=== PATIENT | female | born 1960 | race American Indian/Alaskan Native ===

== ENCOUNTER 2022-06-08 13:10 | Emergency (ER) | payer MEDICARE ==
--- NOTE | 2022-06-09 00:08 | Emergency Department Report ---
- General Chief Complaint: Upper Respiratory Infection Stated Complaint: COUGH/CONGESTION/SORE THROAT Time Seen by Provider: 06/08/22 23:46 Source: patient Mode of arrival: Ambulatory Limitations: No Limitations - History of Present Illness Initial Comments: 62-year-old female presenting with sore throat, cough and congestion that has been going on for about 7 days ago. No fever but chills reported. Pt daughter have had same symptoms as well. She says she tried OTC tamiflu with some improvement yesterday. Pt denies any other modifying or associated factors. MD Complaint: cough, sore throat, nasal congestion - Related Data Home Medications Medication Instructions Recorded Confirmed Last Taken Aspirin [Aspirin BABY CHEW TAB] 81 mg PO QDAY 04/14/16 04/14/16 Unknown Citalopram [celeXA] 10 mg PO QDAY 04/14/16 04/14/16 Unknown Lisinopril/Hydrochlorothiazide 1 tab PO QDAY 04/14/16 04/14/16 Unknown [Zestoretic 20-25 mg] Metoprolol Tartrate [Lopressor] 100 mg PO DAILY 04/14/16 04/14/16 Unknown Phentermine HCl 37.5 mg PO QAM 04/14/16 04/14/16 Unknown Simvastatin (NF) [Zocor TAB] 40 mg PO QHS 04/14/16 04/14/16 Unknown glyBURIDE [Diabeta] 2.5 mg PO DAILY 04/14/16 04/14/16 Unknown Allergies Allergy/AdvReac Type Severity Reaction Status Date / Time No Known Allergies Allergy Verified 06/08/22 13:37 ED Review of Systems ROS: Stated complaint: COUGH/CONGESTION/SORE THROAT Other details as noted in HPI Comment: All other systems reviewed and negative ENT: throat pain Respiratory: cough ED Past Medical Hx - Past Medical History Hx Hypertension: Yes Hx Diabetes: Yes Additional medical history: heart murmur - Surgical History Additional Surgical History: CARDIAC CATH (when she was 18 yrs old) - Social History Smoking Status: Never Smoker Substance Use Type: None - Medications Home Medications: Home Medications Medication Instructions Recorded Confirmed Last Taken Type Aspirin [Aspirin BABY CHEW TAB] 81 mg PO QDAY 04/14/16 04/14/16 Unknown History Citalopram [celeXA] 10 mg PO QDAY 04/14/16 04/14/16 Unknown History Lisinopril/Hydrochlorothiazide 1 tab PO QDAY 04/14/16 04/14/16 Unknown History [Zestoretic 20-25 mg] Metoprolol Tartrate [Lopressor] 100 mg PO DAILY 04/14/16 04/14/16 Unknown History Phentermine HCl 37.5 mg PO QAM 04/14/16 04/14/16 Unknown History Simvastatin (NF) [Zocor TAB] 40 mg PO QHS 04/14/16 04/14/16 Unknown History glyBURIDE [Diabeta] 2.5 mg PO DAILY 04/14/16 04/14/16 Unknown History ED Physical Exam - General Limitations: No Limitations General appearance: alert, in no apparent distress - Head Head exam: Present: normal inspection - Eye Eye exam: Present: normal appearance Pupils: Present: normal accommodation - ENT ENT exam: Present: normal exam, normal orophraynx, mucous membranes moist - Neck Neck exam: Present: normal inspection, full ROM. Absent: tenderness, lymphadenopathy - Respiratory Respiratory exam: Present: normal lung sounds bilaterally. Absent: respiratory distress, chest wall tenderness, accessory muscle use - Cardiovascular Cardiovascular Exam: Present: regular rate, normal rhythm, normal heart sounds - GI/Abdominal GI/Abdominal exam: Present: soft, normal bowel sounds. Absent: distended, tenderness - Extremities Exam Extremities exam: Present: normal inspection, full ROM, normal capillary refill. Absent: tenderness, pedal edema - Back Exam Back exam: Absent: tenderness - Neurological Exam Neurological exam: Present: alert, oriented X3 - Psychiatric Psychiatric exam: Present: normal affect, normal mood - Skin Skin exam: Present: normal color ED Course Vital Signs 06/08/22 06/09/22 13:32 00:22 Temperature 98.6 F 98.0 F Pulse Rate 82 88 Respiratory 18 20 Rate Blood Pressure 160/64 139/77 [Left] O2 Sat by Pulse 100 99 Oximetry ED Medical Decision Making - Medical Decision Making here with sore throat and cough with chills -- this is likely URI likely viral but could not rule out strep-- so will check RST for likely strep pneumo-- and treat accordingly Rapid strep noted noted to be negative Critical care attestation.: If time is entered above; I have spent that time in minutes in the direct care of this critically ill patient, excluding procedure time. ED Disposition Clinical Impression: URI with cough and congestion, Viral URI with cough Disposition: 01 HOME / SELF CARE / HOMELESS Is pt being admited?: No Does the pt Need Aspirin: No Condition: Stable Instructions: Viral Respiratory Infection, [id number], Upper Respiratory Infection, Adult, [id number], Cough, Adult, [id number] Additional Instructions: Maintain adequate rest It is okay to take Tylenol/ibuprofen as needed every 6-8 hours as needed for pain or fever Call and schedule follow-up with your primary doctor in the next 3 to 5 days for progress Please do not hesitate to call or return to emergency if your symptoms worsen Referrals: PRIMARY CARE, [Primary Care Provider] - 3-5 Days Time of Disposition: 04:12
[2022-06-09 04:21] VITALS: BP 139/80
== END 2022-06-09 04:21 | disposition home or self-care (01) ==
LOC: ED 13:10
DX: J06.9 Acute upper respiratory infection, unspecified (principal); R05.9 Cough, unspecified; R09.81 Nasal congestion; I10 Essential (primary) hypertension; E11.9 Type 2 diabetes mellitus without complications
CPT/HCPCS: 87116; 87430; 99283